=== PATIENT | female | born 1975 | race Caucasian/White ===

== ENCOUNTER 2018-08-31 00:57 | Inpatient (IN) | payer OTHER ==
[~2018-08-31] VITALS: Ht 160 cm; Wt 66.8 kg
[2018-08-31 01:11] VITALS: BP 112/73
[2018-08-31] MEDS ORDERED: RINGERS SOLUTION,LACTATED 1,000 ML IV ONE (01:43)
[2018-08-31] MEDS ORDERED: CITRIC ACID/SODIUM CITRATE 30 ML SOLUTION UDCUP PO ONE (03:15)
[2018-08-31] MEDS ORDERED: METOCLOPRAMIDE HCL 5 MG/ML 2 ML VIAL IVP ONE (03:15)
[2018-08-31] MEDS ORDERED: AMPICILLIN SODIUM 2 GM/NS 100 ML IV ONE ×2 (03:40→03:45)
[2018-08-31] MEDS ORDERED: ROPIVACAINE HCL/PF 0.2% 100 ML ED ONE (03:43)
[2018-08-31] MEDS: RINGERS SOLUTION,LACTATED 1,000 ML IV SCH ×4 (03:52→18:00)
[2018-08-31] MEDS ORDERED: ROPIVACAINE HCL/PF 0.2% 100 ML ED PRN (04:15)
[2018-08-31] MEDS ORDERED: DiphenhydrAMINE HCL 50 MG/ML VIAL IVP PRN ×2 (04:15→07:45)
[2018-08-31] MEDS ORDERED: ONDANSETRON HCL 4 MG/2 ML VIAL IVP PRN ×2 (04:15→07:45)
[2018-08-31 04:23] LABS: BASOPHILS % (AUTO) 0.4 % (0.0-2.0); EOSINOPHILS % (AUTO) 0.1 % (1.0-6.0); HEMATOCRIT 34.8 % (36-46); HEMOGLOBIN 11.7 g/dL (12.0-16.0); LYMPHOCYTES % (AUTO) 16.7 % (22.0-44.0); MEAN CORPUSCULAR HEMOGLOBIN 31.2 pg (26.0-34.0); MEAN CORPUSCULAR HGB CONC 33.7 G/dL (31.0-37.0); MEAN CORPUSCULAR VOLUME 93 fL (80-100); MONOCYTES # (AUTO) 0.6 K/uL (0.1-1.0); MONOCYTES % (AUTO) 5.1 % (2.0-9.0); NEUTROPHILS # (AUTO) 9.2 K/uL (1.8-7.7); NEUTROPHILS % (AUTO) 77.7 % (40.0-70.0); PLATELET COUNT (AUTO)-OB 242 K/uL (150-450); RED BLOOD CELL COUNT(AUTO) 3.75 MIL/uL (4.00-5.20); RED CELL DISTRIBUTION WIDTH 13.4 % (11.5-14.5)
[2018-08-31] MEDS ORDERED: ACETAMINOPHEN 1000 MG/ISO-OSM 100 ML IV ONE ×2 (06:37→09:31)
[2018-08-31] MEDS ORDERED: FentaNYL CITRATE-PF 100 MCG/2 ML VIAL IVP PRN ×2 (07:45)
[2018-08-31] MEDS ORDERED: MEPERIDINE-PF 25 MG/ML VIAL IVP PRN (07:45)
[2018-08-31] MEDS ORDERED: NALOXONE HCL 0.4 MG/ML VIAL IVP PRN (07:45)
[2018-08-31] MEDS ORDERED: OxyCODONE HCL/ACETAMINOPHEN 10-325 MG TABLET PO PRN (07:45)
[2018-08-31] MEDS ORDERED: AMPICILLIN SODIUM 1 GM/NS 50 ML IV SCH (07:45)
[2018-08-31] MEDS ORDERED: HYDROmorphone 2 MG/ML SYRINGE IVP PRN ×2 (07:45)
[2018-08-31] MEDS: ACETAMINOPHEN 1000 MG/ISO-OSM 100 ML IV PRN ×2 (09:34→15:49)
[2018-08-31] MEDS ORDERED: LIDOCAINE/PF 2% 5 ML VIAL INJ ONE (12:00)
[2018-08-31] MEDS ORDERED: MORPHINE SULFATE/PF 0.5 MG/ML 10 ML AMP IVP ONE (12:00)
[2018-08-31] MEDS ORDERED: FentaNYL CITRATE-PF 100 MCG/2 ML VIAL IVP ONE (12:00)
[2018-08-31] MEDS ORDERED: KETOROLAC TROMETHAMINE 60 MG/2 ML VIAL IM ONE (12:00)
[2018-08-31] MEDS ORDERED: 0.9% SODIUM CHLORIDE 10 ML VIAL IVP ONE (12:00)
[2018-08-31] MEDS ORDERED: OXYTOCIN 10 UNITS/ML VIAL IM ONE (12:00)
[2018-08-31] MEDS ORDERED: ONDANSETRON HCL 4 MG/2 ML VIAL IVP ONE (12:00)
[2018-08-31] MEDS ORDERED: EPHEDrine SULFATE 50 MG/ML VIAL IM ONE (12:00)
[2018-08-31] MEDS: KETOROLAC TROMETHAMINE 15 MG/ML VIAL IVP SCH (17:58)
[2018-08-31] MEDS: ACETAMINOPHEN 500 MG TABLET PO SCH (22:00)
[2018-09-01] MEDS: RINGERS SOLUTION,LACTATED 1,000 ML IV SCH (01:33)
[2018-09-01] MEDS: KETOROLAC TROMETHAMINE 15 MG/ML VIAL IVP SCH (01:34)
[2018-09-01] MEDS: ACETAMINOPHEN 500 MG TABLET PO SCH (06:14)
[2018-09-01 16:13] LABS: BASOPHILS % (AUTO) 0.2 % (0.0-2.0); EOSINOPHILS % (AUTO) 0.6 % (1.0-6.0); HEMATOCRIT 33.7 % (36-46); HEMOGLOBIN 11.3 g/dL (12.0-16.0); LYMPHOCYTES # (AUTO) 1.9 K/uL (1.0-4.8); LYMPHOCYTES % (AUTO) 11.9 % (22.0-44.0); MEAN CORPUSCULAR HEMOGLOBIN 31.5 pg (26.0-34.0); MEAN CORPUSCULAR HGB CONC 33.4 G/dL (31.0-37.0); MEAN CORPUSCULAR VOLUME 94 fL (80-100); MONOCYTES # (AUTO) 0.9 K/uL (0.1-1.0); MONOCYTES % (AUTO) 5.5 % (2.0-9.0); NEUTROPHILS # (AUTO) 13.1 K/uL (1.8-7.7); NEUTROPHILS % (AUTO) 81.8 % (40.0-70.0); PLATELET COUNT (AUTO)-OB 243 K/uL (150-450); RED BLOOD CELL COUNT(AUTO) 3.58 MIL/uL (4.00-5.20); RED CELL DISTRIBUTION WIDTH 13.6 % (11.5-14.5)
[2018-09-01] MEDS ORDERED: OXYTOCIN 30 UNITS/LACT RINGERS 500 ML IV ONE (21:54)
[2018-09-01] MEDS ORDERED: RINGERS SOLUTION,LACTATED 1,000 ML IV SCH (21:54)
[2018-09-01] MEDS ORDERED: OxyCODONE HCL/ACETAMINOPHEN 5-325 MG TABLET PO PRN ×2 (22:00)
[2018-09-01] MEDS ORDERED: LANOLIN 7 GM OINTMENT TP PRN (22:00)
[2018-09-01] MEDS: MAGNESIUM HYDROXIDE SUSPENSION 30 ML UDCUP PO SCH (22:25)
[2018-09-01] MEDS: IBUPROFEN 800 MG TABLET PO PRN (22:25)
[2018-09-02 05:07] LABS: BASOPHILS % (AUTO) 0.2 % (0.0-2.0); EOSINOPHILS % (AUTO) 1.4 % (1.0-6.0); HEMATOCRIT 31.7 % (36-46); HEMOGLOBIN 10.7 g/dL (12.0-16.0); LYMPHOCYTES # (AUTO) 2.1 K/uL (1.0-4.8); LYMPHOCYTES % (AUTO) 14.7 % (22.0-44.0); MEAN CORPUSCULAR HEMOGLOBIN 31.7 pg (26.0-34.0); MEAN CORPUSCULAR HGB CONC 33.9 G/dL (31.0-37.0); MEAN CORPUSCULAR VOLUME 93 fL (80-100); MONOCYTES # (AUTO) 0.7 K/uL (0.1-1.0); NEUTROPHILS # (AUTO) 11.3 K/uL (1.8-7.7); NEUTROPHILS % (AUTO) 78.7 % (40.0-70.0); PLATELET COUNT (AUTO)-OB 239 K/uL (150-450); RED BLOOD CELL COUNT(AUTO) 3.39 MIL/uL (4.00-5.20); RED CELL DISTRIBUTION WIDTH 13.9 % (11.5-14.5)
[2018-09-02] MEDS: IBUPROFEN 800 MG TABLET PO PRN (05:39)
[2018-09-02] MEDS: MAGNESIUM HYDROXIDE SUSPENSION 30 ML UDCUP PO SCH (09:01)
[2018-09-02] MEDS ORDERED: ACET-66 PO ×2 (09:33→09:41)
[2018-09-02] MEDS ORDERED: DSS100 PO (09:37)
[2018-09-02] MEDS ORDERED: IBUP-2070 PO (09:37)
[2018-09-02] MEDS ORDERED: HYDR-4061 PO (09:40)
== END 2018-09-02 11:50 | disposition home or self-care (01) | DRG 788 ==
LOC: 4S 00:57 → OBSVTOIN 00:57 → 4S 08:30
PROVIDERS: ADMIT Obstetrics & Gynecology; ATTEND Obstetrics & Gynecology
PROC: 10D00Z1 Extraction of Products of Conception, Low, Open Approach (ICD-10-PCS; principal; 2018-08-31)
DX: O99.824 Streptococcus B carrier state complicating childbirth (principal); O34.211 Maternal care for low transverse scar from previous cesarean delivery; Z3A.38 38 weeks gestation of pregnancy; Z37.0 Single live birth
CPT/HCPCS: 86850; 86900; 86901; J0131; J0290; J0690; J1885; J2274; J2405; J2590; J2765; J2795; J3010; J3490; J7120